=== PATIENT | male | born 1960 | race Caucasian/White ===

== ENCOUNTER 2016-12-23 18:34 | Inpatient (IN) | payer OTHER ==
--- NOTE | 2016-12-23 18:50 | ED GENERAL ADULT ---
History of Present Illness General Chief Complaint: Seizure Stated Complaint: PER , "I THINK HE HAD A SEIZURE" Source: patient, family, old records Exam Limitations: no limitations Vital Signs & Intake/Output Vital Signs & Intake/Output Vital Signs Date Time Temp Pulse Resp B/P Pulse O2 O2 Flow FiO2 Ox Delivery Rate 12/25 0830 98.5 117 18 110/70 93 Room Air 12/25 0045 99.1 100 18 110/78 94 Room Air 12/24 1608 98.6 106 20 120/60 98 ED Intake and Output 12/25 0000 12/24 1200 Intake Total 980 100 Output Total Balance 980 100 Intake, IV 20 Intake, Oral 960 100 Allergies Coded Allergies: NO KNOWN ALLERGIES (12/14/13) Reconcile Medications Aripiprazole (Abilify) 30 MG TABLET 1 TAB PO DAILY MENTAL HEALTH (Reported) Benztropine Mesylate 1 MG TABLET 1 TAB PO DAILY MENTAL HEALTH (Reported) [place] Carbonate 600 MG CAPSULE 1 CAP PO DAILY MENTAL HEALTH (Reported) Trazodone HCl 100 MG TABLET 1 TAB PO QPM SLEEP (Reported) Venlafaxine HCl (Venlafaxine HCl ER) 150 MG CAP.ER.24H 1 CAP PO DAILY MENTAL HEALTH (Reported) Triage Note: PT TO ED S/P SYNCOPAL EPISODE. PT STATES HE WENT TO USE THE BATHROOM, SHUT THE DOOR AND THEN PASSED OUT, HITTING THE FLOOR. SON STATES PT WAS OUT FOR A FEW SECONDS. PT HAS NO COMPLAINTS. DENIES BEING ON BLOOD THINNERS. PT DID NOT EAT TODAY. Triage Nurses Notes Reviewed? yes HPI: Patient is a 56 year old male brought in by his family for syncopal episode. Patient reports he was walking into the bathroom when he had a brief syncopal episode. Pain is 0/10. Patient was released from intermediate(1 year incarceration), was with family entire time. Son witnessed episode, reports patient was standing, passed out and hit his head then had less than 5 seconds of shaking. Denies headache, chest pain, palpitations, seizure activity, alcohol use, illicit substance ingestion. (COLBY GROVE,BRITTANI) Past History Travel History Traveled to [place] past 21 day No Medical History Any Pertinent Medical History? see below for history Psychiatric: bipolar disease, depression Surgical History Surgical History: non-contributory Psychosocial History What is your primary language Ivorian Tobacco Use: Current Daily Use Daily Tobacco Use Amount/Type: => 5 Cigarettes daily ETOH Use: denies use Illicit Drug Use: denies illicit drug use Family History Hx Contributory? No (BRITTANI COBOS) Review of Systems Review of Systems Constitutional: Denies: chills, diaphoresis, fever. EENTM: Reports: no symptoms. Respiratory: Denies: cough, short of breath. Cardiovascular: Reports: syncope. Denies: chest pain, palpitations, peripheral edema. GI: Denies: abdominal pain, nausea, vomiting. Genitourinary: Reports: no symptoms. Musculoskeletal: Denies: back pain, neck pain. Skin: Reports: no symptoms. Neurological/Psychological: Denies: headache, numbness, unable to move lower ext, unable to move upper ext. Hematologic/Endocrine: Denies: bruising, bleeding. Immunologic/Allergic: Denies: splenectomy. (BRITTANI COBOS) Physical Exam Physical Exam General Appearance: alert, awake Head: atraumatic, normal appearance Eyes: Bilateral: normal appearance, PERRL, EOMI. Ears, Nose, Throat: normal pharynx, normal ENT inspection, hearing grossly normal Neck: normal inspection, supple, full range of motion, no midline tenderness Respiratory: normal breath sounds, chest non-tender, no respiratory distress, lungs clear Cardiovascular: tachycardia, regular rhythm, no appreciable murmur Peripheral Pulses: 2+ radial (R), 2+ radial (L), 2+ dorsalis pedis (R), 2+ dorsalis pedis (L) Gastrointestinal: soft, non-tender, no palpable masses Back: normal inspection, normal range of motion, no vertebral tenderness Extremities: normal inspection, normal capillary refill, normal range of motion, no edema Neurologic/Psych: no motor/sensory deficits, awake, alert, oriented x 3, e commerce web developer II- XII nml as tested Skin: intact, normal color, warm/dry Lymphatic: no anterior cervical riky Core Measures ACS in differential dx? Yes CVA/TIA Diagnosis: No Severe Sepsis Present: No Septic Shock Present: No (BRITTANI COBOS) Progress Differential Diagnoses I considered the following diagnoses in my evaluation of the patient: Seizure, syncopal episode, vasovagal episode, orthostatic syncope, CVA, arrhythmia, substance abuse, electrolyte abnormality, intracranial bleed, pulmonary embolism Plan of Care: Orders Procedure Date/time Status House Staff 12/25 UNK Active Discharge Patient 12/25 UNK Active Episode witnessed by patient's son. Based on sons explanation suspect syncope rather than seizure. During my initial exam patient placed on panel monitor and had 2 episodes of nonsustained ventricular tachycardia. rhythm strip printed and placed in the chart. Discussed with and seen by Dr. Brennan. Results of labs and CT scan discussed with patient. Dr. Brennan discussed patient with Dr. Vergara for admission. (COLBY GROVE,BRITTANI) Diagnostic Imaging: Viewed by Me: Radiology Read. Discussed w/RAD: Radiology Read. Radiology Impression: PATIENT: KARIE SALGADO PRESENT AGE: 56 PATIENT ACCOUNT NO: [id number] : 61 LOCATION: [facility] ORDERING PHYSICIAN: BRITTANI GROVE SERVICE DATE: 12/23/16 EXAM TYPE: RAD - XRY-PORTABLE CHEST XRAY EXAMINATION: XR PORTABLE CHEST CLINICAL INFORMATION: Syncope. Nonsustained V. tach COMPARISON: None TECHNIQUE: Portable AP view of the chest was obtained. 7:03 PM FINDINGS: No significant abnormality is noted involving the heart, lungs, mediastinum, bony thorax or soft tissues. IMPRESSION: No acute abnormality of the chest. DICTATED BY: TOY AG MD DATE /TIME DICTATED:12/23/161955 FIBERGLASS MODEL MAKER:VON DATE/TIME TRANSCRIBED: 12/23/161955 CONFIDENTIAL, DO NOT COPY WITHOUT APPROPRIATE AUTHORIZATION. < Electronically signed in Other Vendor System> SIGNED BY: TOY AG MD 1999 Initial ED EKG: normal sinus rhythm 120 bpm, borderline right axis deviation, no acute st elevation or depression Rhythm Strip: NSR with episodes of nonsustained ventricular tachycardia (BRITTANI COBOS) Differential Diagnoses I considered the following diagnoses in my evaluation of the patient: Diagnostic Imaging: Viewed by Me: CT Scan. Discussed w/RAD: CT Scan. Radiology Impression: PATIENT: KARIE SALGADO PRESENT AGE: 56 PATIENT ACCOUNT NO: [id number] : 61 LOCATION: [facility] ORDERING PHYSICIAN: BRITTANI GROVE SERVICE DATE: 12/23/16 EXAM TYPE: CAT - CTA CHEST-PULMONARY EMBOLISM EXAMINATION: CT ANGIOGRAM OF THE CHEST WITH AND WITHOUT CONTRAST (CT PULMONARY ANGIOGRAM FOR PE) CLINICAL INFORMATION: Syncope. Tachycardia. COMPARISON: None TECHNIQUE: Prior to contrast administration, noncontrast localization images were obtained. Subsequently, multidetector volumetric imaging was performed from the thoracic inlet to below the diaphragms following the administration of 79 mL Optiray 300 intravenous contrast. No contrast reaction reported Sagittal, coronal, and MIP oblique sagittal reformatted images were obtained on the CT workstation, uploaded to PACS, and reviewed. Total exam dose-length product 369.62 mGy-cm FINDINGS: QUALITY OF STUDY/CONTRAST BOLUS: Satisfactory. PULMONARY ARTERIES: No central or segmental pulmonary emboli. THORACIC AORTA: No aneurysm or dissection. LUNG: Emphysematous lucencies of lung. No acute infiltrate. No interstitial or reticular opacity. Central bronchial airways are open. No bronchiectasis. PLEURA : No pleural effusion or pneumothorax. MEDIASTINUM: Normal heart size. No pericardial effusion. No hilar or mediastinal lymphadenopathy. No evidence of septal bowing or right heart strain. CHEST WALL/AXILLA: No axillary or internal mammary lymphadenopathy. OSSEOUS STRUCTURES: No acute or suspicious osseous abnormality. UPPER ABDOMEN: Unremarkable. No reflux of contrast into the hepatic veins to suggest elevated right heart pressures. IMPRESSION: 1. Emphysematous changes of lung. 2. No acute abnormality. No evidence of pulmonary embolism. VTE: negative DICTATED BY: TOY AG MD DATE/TIME DICTATED:12/23/162058 FIBERGLASS MODEL MAKER:VON DATE/TIME TRANSCRIBED:12/23/162058 CONFIDENTIAL, DO NOT COPY WITHOUT APPROPRIATE AUTHORIZATION. <Electronically signed in Other Vendor System> SIGNED BY: TOY AG MD 12/23/162111 (SANDIE BRENNAN MD) Departure Departure Disposition: STILL A PATIENT Condition: Stable Clinical Impression Primary Impression: Nonsustained ventricular tachycardia Secondary Impressions: Syncope Qualifiers: Syncope type: unspecified Qualified Code: R55 - Syncope and collapse Referrals: JOHANNA SHEPARD,CHRISTI Frost JR Departure Forms: Customer Survey General Discharge Information (BRITTANI COBOS) Departure Time of Disposition: 2120 Admission Note Spoke With: ZENA VERGARA MD Documentation of Exam: Documentation of any treatments & extenuating circumstances including Concerns Regarding Discharge (functional status, medication knowledge or non-compliance, living conditions, etc.) that warrant an admission rather than observation: [ TELE MONITOR, SERIAL EKG/TROPONIN, ECHOCARDIOGRAM, CARDIOLOGY CONSULTATION, CONSIDER NEURO EVALUATION] PA/TRAINING AND DEVELOPMENT HEAD Co-Sign Statement Statement: ED Attending supervision documentation- [X] I saw and evaluated the patient. I have also reviewed all the pertinent lab results and diagnostic results. I agree with the findings and the plan of care as documented in the PA's/TRAINING AND DEVELOPMENT HEAD's documentation. [X] I have reviewed the ED Record and agree with the PA's/TRAINING AND DEVELOPMENT HEAD's documentation. [] Additions or exceptions (if any) to the PAs/TRAINING AND DEVELOPMENT HEAD's note and plan are summarized below: [] (TIGRE SHEPARD,SANDIE) Critical Care Note Critical Care Note Critical Care Time: 30-74 min (COLBY GROVE,BRITTANI) Sig/Spike Start time Last Medication Dose Stop Time Status Admin Trazodone HCl 100 MG QPM 12/24 2200 AC (Olivia) Laboratory Tests 12/24/16 0707: Anion Gap 8, Estimated GFR > 60, BUN/Creatinine Ratio 13.3, Troponin I < 0.01, CBC w Diff NO MAN DIFF REQ, RBC 4.09 L, MCV 98.3 H, MCH 32.6 H, RDW 12.2, MPV 8.0, Gran % 63.6, Lymphocytes % 23.6, Monocytes % 9.1, Eosinophils % 3.4, Basophils % 0.3, Absolute Granulocytes 5.6, Absolute Lymphocytes 2.1, Absolute Monocytes 0.8 H, Absolute Eosinophils 0.3, Absolute Basophils 0, PUBS MCHC 33.2 12/24/16 0215: Lactic Acid 1.6, Troponin I < 0.01 12/23/161950: [place] 0.4 L, Serum Alcohol < 10.0 12/23/161950: Anion Gap 9, Estimated GFR > 60, BUN/Creatinine Ratio 12.2, Glucose 101 H, Calcium 9.5, Magnesium 1.9, Total Bilirubin 0.6, AST 17, ALT 34, Alkaline Phosphatase 78, Creatine Kinase 118, Troponin I < 0.01, Total Protein 7.5, Albumin 4.2, Globulin 3.3, Albumin/Globulin Ratio 1.3, Vitamin B12 534, Folate 14.5, TSH &T3 &Free T4 Intrp 3.590, Prolactin 7.5, Urine Opiates Screen < 100.00 , Methadone Screen < 40, Barbiturate Screen < 60, Ur Phencyclidine Scrn < 6.00, Amphetamines Screen < 100, U Benzodiazepines Scrn < 85, Urine Cocaine Screen < 50, Urine Cannabis Screen < 5.00 12/23/16 1910: CBC w Diff NO MAN DIFF REQ, RBC 4.53 L, MCV 96.8 H, MCH 32.6 H, RDW 12.0, MPV 7.9, Gran % 76.0 H, Lymphocytes % 15.6 L, Monocytes % 6.8, Eosinophils % 1.3, Basophils % 0.3, Absolute Granulocytes 10.3 H, Absolute Lymphocytes 2.1, Absolute Monocytes 0.9 H, Absolute Eosinophils 0.2, Absolute Basophils 0, PUBS MCHC 33.7 Episode witnessed by patient's son. Based on sons explanation suspect syncope rather than seizure. During my initial exam patient placed on panel monitor and had 2 episodes of nonsustained ventricular tachycardia. rhythm strip printed and placed in the chart. Discussed with and seen by Dr. Brennan. Results of labs and CT scan discussed with patient. Dr. Brennan discussed patient with Dr. Vergara for admission. (COLBY GROVE,BRITTANI) Diagnostic Imaging: Viewed by Me: CT Scan. Discussed w/RAD: CT Scan. Radiology Impression: PATIENT: KARIE SALGADO PRESENT AGE: 56 PATIENT ACCOUNT NO: [id number] : 61 LOCATION: [facility] ORDERING PHYSICIAN: BRITTANI GROVE SERVICE DATE: 12/23/16 EXAM TYPE: CAT - CTA CHEST-PULMONARY EMBOLISM EXAMINATION: CT ANGIOGRAM OF THE CHEST WITH AND WITHOUT CONTRAST (CT PULMONARY ANGIOGRAM FOR PE) CLINICAL INFORMATION: Syncope. Tachycardia. COMPARISON: None TECHNIQUE: Prior to contrast administration, noncontrast localization images were obtained. Subsequently, multidetector volumetric imaging was performed from the thoracic inlet to below the diaphragms following the administration of 79 mL Optiray 300 intravenous contrast. No contrast reaction reported Sagittal, coronal, and MIP oblique sagittal reformatted images were obtained on the CT workstation, uploaded to PACS, and reviewed. Total exam dose-length product 369.62 mGy-cm FINDINGS: QUALITY OF STUDY/CONTRAST BOLUS: Satisfactory. PULMONARY ARTERIES: No central or segmental pulmonary emboli. THORACIC AORTA: No aneurysm or dissection. LUNG: Emphysematous lucencies of lung. No acute infiltrate. No interstitial or reticular opacity. Central bronchial airways are open. No bronchiectasis. PLEURA : No pleural effusion or pneumothorax. MEDIASTINUM: Normal heart size. No pericardial effusion. No hilar or mediastinal lymphadenopathy. No evidence of septal bowing or right heart strain. CHEST WALL/AXILLA: No axillary or internal mammary lymphadenopathy. OSSEOUS STRUCTURES: No acute or suspicious osseous abnormality. UPPER ABDOMEN: Unremarkable. No reflux of contrast into the hepatic veins to suggest elevated right heart pressures. IMPRESSION: 1. Emphysematous changes of lung. 2. No acute abnormality. No evidence of pulmonary embolism. VTE: negative DICTATED BY: TOY AG MD DATE/TIME DICTATED:12/23/162058 FIBERGLASS MODEL MAKER:VON DATE/TIME TRANSCRIBED:12/23/162058 CONFIDENTIAL, DO NOT COPY WITHOUT APPROPRIATE AUTHORIZATION. <Electronically signed in Other Vendor System> SIGNED BY: TOY AG MD 12/23/162111 (SANDIE BRENNAN MD) Departure Departure Disposition: STILL A PATIENT Condition: Stable Clinical Impression Primary Impression: Nonsustained ventricular tachycardia Secondary Impressions: Syncope Qualifiers: Syncope type: unspecified Qualified Code: R55 - Syncope and collapse Referrals: JOHANNA SHEPARD,CHRISTI Frost JR Departure Forms: Customer Survey General Discharge Information (BRITTANI COBOS) Departure Time of Disposition: 2120 Admission Note Spoke With: ZENA VERGARA MD Documentation of Exam: Documentation of any treatments & extenuating circumstances including Concerns Regarding Discharge (functional status, medication knowledge or non-compliance, living conditions, etc.) that warrant an admission rather than observation: [ TELE MONITOR, SERIAL EKG/TROPONIN, ECHOCARDIOGRAM, CARDIOLOGY CONSULTATION, CONSIDER NEURO EVALUATION] PA/TRAINING AND DEVELOPMENT HEAD Co-Sign Statement Statement: ED Attending supervision documentation- [X] I saw and evaluated the patient. I have also reviewed all the pertinent lab results and diagnostic results. I agree with the findings and the plan of care as documented in the PA's/TRAINING AND DEVELOPMENT HEAD's documentation. [X] I have reviewed the ED Record and agree with the PA's/TRAINING AND DEVELOPMENT HEAD's documentation. [] Additions or exceptions (if any) to the PAs/TRAINING AND DEVELOPMENT HEAD's note and plan are summarized below: [] (SANDIE BRENNAN MD) Critical Care Note Critical Care Note Critical Care Time: 30-74 min (BRITTANI COBOS)
[2016-12-23 19:22] LABS: ABSOLUTE BASOPHIL COUNT 0 /CUMM (0.0-0.2); ABSOLUTE EOSINOPHIL COUNT 0.2 /CUMM (0.0-0.7); ABSOLUTE GRANULOCYTE CT 10.3 /CUMM (1.4-6.5); ABSOLUTE LYMPH COUNT 2.1 /CUMM (1.2-3.4); ABSOLUTE MONOCYTE COUNT 0.9 /CUMM (0.10-0.60); BASOPHIL % 0.3 % (0.0-2.0); EOSINOPHIL % 1.3 % (0-5); HEMATOCRIT 43.8 % (42-52); MEAN CORPUSCULAR HGB 32.6 PG (27.0-31.0); MEAN CORPUSCULAR HGB CONC 33.7 G/DL (33.0-37.0); MEAN CORPUSCULAR VOLUME 96.8 FL (80.0-94.0); MEAN PLATELET VOLUME 7.9 FL (7.4-10.4); PLATELET COUNT 246 /CUMM (130-400); RED BLOOD CELL CT 4.53 /CUMM (4.70-6.10); WHITE BLOOD CELL COUNT 13.5 /CUMM (4.8-10.8)
--- NOTE | 2016-12-23 20:00 | RADIOLOGY REPORT ---
EXAMINATION: XR PORTABLE CHEST CLINICAL INFORMATION: Syncope. Nonsustained V. tach COMPARISON: None TECHNIQUE: Portable AP view of the chest was obtained. 7:03 PM FINDINGS: No significant abnormality is noted involving the heart, lungs, mediastinum, bony thorax or soft tissues. IMPRESSION: No acute abnormality of the chest.
[2016-12-23] MEDS ORDERED: LITHIUM CARBON600 M1 PO (20:15)
[2016-12-23] MEDS ORDERED: VENLAFAXINE HC150 MG PO (20:16)
[2016-12-23] MEDS ORDERED: BENZTROPINE MESY1 M1 PO (20:16)
[2016-12-23] MEDS ORDERED: ABILIFY30 M1 PO (20:16)
[2016-12-23] MEDS ORDERED: TRAZODONE HCL100 M1 PO (20:16)
--- NOTE | 2016-12-23 21:12 | CT SCAN REPORT ---
EXAMINATION: CT ANGIOGRAM OF THE CHEST WITH AND WITHOUT CONTRAST (CT PULMONARY ANGIOGRAM FOR PE) CLINICAL INFORMATION: Syncope. Tachycardia. COMPARISON: None TECHNIQUE: Prior to contrast administration, noncontrast localization images were obtained. Subsequently, multidetector volumetric imaging was performed from the thoracic inlet to below the diaphragms following the administration of 79 mL Optiray 300 intravenous contrast. No contrast reaction reported Sagittal, coronal, and MIP oblique sagittal reformatted images were obtained on the CT workstation, uploaded to PACS, and reviewed. Total exam dose-length product 369.62 mGy-cm FINDINGS: QUALITY OF STUDY/CONTRAST BOLUS: Satisfactory. PULMONARY ARTERIES: No central or segmental pulmonary emboli. THORACIC AORTA: No aneurysm or dissection. LUNG: Emphysematous lucencies of lung. No acute infiltrate. No interstitial or reticular opacity. Central bronchial airways are open. No bronchiectasis. PLEURA: No pleural effusion or pneumothorax. MEDIASTINUM: Normal heart size. No pericardial effusion. No hilar or mediastinal lymphadenopathy. No evidence of septal bowing or right heart strain. CHEST WALL/AXILLA: No axillary or internal mammary lymphadenopathy. OSSEOUS STRUCTURES: No acute or suspicious osseous abnormality. UPPER ABDOMEN: Unremarkable. No reflux of contrast into the hepatic veins to suggest elevated right heart pressures. IMPRESSION: 1. Emphysematous changes of lung. 2. No acute abnormality. No evidence of pulmonary embolism. VTE: negative
[2016-12-23 21:26] LABS: LITHIUM 0.4 mmol/L (0.6-1.2)
--- NOTE | 2016-12-23 23:31 | History & Physical ---
FAUSTINO VANN MD 12/23/16 9940: General Information and HPI History of Present Illness: 56-year-old man with significant past medical history of "hearing voices" seen for evaluation of an episode of syncope. Patient was at home in his normal state of health this afternoon when he stood up from the table and ambulated to the bathroom. He turned around to shut the door when he suddenly lost consciousness. He denies any preceding aura, lightheadedness, chest pain, palpitations or shortness of breath and states that it felt like the "lights went out". He recalls waking up a short time later on the ground to his son who was at his side and reports that his father was seen to be "shaking" for about 5 seconds. Patient denies any bowel/bladder incontinence during this episode. The episode was witnessed by his son reports a positive head strike. Patient denies having ever had an episode like this before in the past. He denies any confusion after the episode. Patient does note a recent hospitalization at [facility] for "hearing voices" for which she was discharged to home on multiple psychiatric medications with instruction to follow-up with care. Patient reports medication compliance and regular follow-ups with his psychiatrist. Otherwise he denies any blurred/double vision, lightheadedness/dizziness, headache, fever, chills, nausea, vomiting, diarrhea, numbness/tingling, decreased oral intake, constipation, urinary frequency/urgency/burning/pain, slurred speech, altered sensation. Past medical history-"hearing voices" does not recall specific diagnosis Social history-denies recreational drug use reports medication compliance, does not currently have a PCP, followed by a psychiatrist at [facility] (see provider unknown) Allergies/Medications Allergies: Coded Allergies: NO KNOWN ALLERGIES (12/14/13) Home Med list Aripiprazole (Abilify) 30 MG TABLET 1 TAB PO DAILY MENTAL HEALTH (Reported) Benztropine Mesylate 1 MG TABLET 1 TAB PO DAILY MENTAL HEALTH (Reported) [place] Carbonate 600 MG CAPSULE 1 CAP PO DAILY MENTAL HEALTH (Reported) Trazodone HCl 100 MG TABLET 1 TAB PO QPM SLEEP (Reported) Venlafaxine HCl (Venlafaxine HCl ER) 150 MG CAP.ER.24H 1 CAP PO DAILY MENTAL HEALTH (Reported) Past History Travel History Traveled to [place] past 21 day No Medical History Psychiatric: bipolar disease, depression Surgical History Surgical History: none Past Family/Social History Psychosocial History Where do you live? Home Who Do You Live With? spouse, child Services at Home: None Primary Language: Mosotho ETOH Use: denies use Illicit Drug Use: denies illicit drug use Review of Systems Review of Systems Constitutional: Reports: see HPI. Exam & Diagnostic Data Last 24 Hrs of Vital Signs/I&O Vital Signs Date Time Temp Pulse Resp B/P Pulse O2 O2 Flow FiO2 Ox Delivery Rate 12/23 2340 96.9 106 18 109/65 96 Room Air 12/23 2111 97.6 115 16 121/73 94 Room Air 12/23 1840 97.0 140 20 117/68 96 Room Air Physical Exam General Appearance Alert, Oriented X3, Cooperative, No Acute Distress Skin No Rashes, No Breakdown, No Significant Lesion HEENT Atraumatic, PERRLA, EOMI, Mucous Membr. moist/pink Neck Supple, No JVD, +2 Carotid Pulse wo Bruit Cardiovascular Regular Rate, Normal S1, Normal S2, No Murmurs Lungs Clear to Auscultation, Normal Air Movement Abdomen Normal Bowel Sounds, Soft, No Tenderness, No Hepatospenomegaly, No Masses Neurological Normal Speech, Strength at 5/5 X4 Ext, Normal Tone, Sensation Intact, Cranial Nerves 3-12 NL, sensation/coorindation intact, gait not assessed , CN II-XII intact Extremities No Clubbing, No Cyanosis, No Edema, Normal Pulses, No Tenderness/ Swelling Vascular Normal Pulses, Pulses Symmetrical Last 24 Hrs of Labs/Maury: Laboratory Tests 12/23/161950: [place] 0.4 L, Serum Alcohol < 10.0 12/23/161950: Anion Gap 9, Estimated GFR > 60, BUN/Creatinine Ratio 12.2, Glucose 101 H, Calcium 9.5, Magnesium 1.9, Total Bilirubin 0.6, AST 17, ALT 34, Alkaline Phosphatase 78, Creatine Kinase Pending, Troponin I < 0.01, Total Protein 7.5, Albumin 4.2, Globulin 3.3, Albumin/Globulin Ratio 1.3, Vitamin B12 Pending, Folate Pending, TSH &T3 &Free T4 Intrp 3.590, Prolactin 7.5, Urine Opiates Screen < 100.00, Methadone Screen < 40, Barbiturate Screen < 60, Ur Phencyclidine Scrn < 6.00, Amphetamines Screen < 100, U Benzodiazepines Scrn < 85, Urine Cocaine Screen < 50, Urine Cannabis Screen < 5.00 12/23/160: CBC w Diff NO MAN DIFF REQ, RBC 4.53 L, MCV 96.8 H, MCH 32.6 H, RDW 12.0, MPV 7.9, Gran % 76.0 H, Lymphocytes % 15.6 L, Monocytes % 6.8, Eosinophils % 1.3, Basophils % 0.3, Absolute Granulocytes 10.3 H, Absolute Lymphocytes 2.1, Absolute Monocytes 0.9 H, Absolute Eosinophils 0.2, Absolute Basophils 0, PUBS MCHC 33.7 Diagnostic Data EKG Results Sinus tachycardia HR 121 NV 152 QTC 454 Assessment/Plan Assessment: 56-year-old man with multiple psychiatric issues seen for evaluation of a witnessed episode of loss of consciousness with head strike and short shaking episode. ED course: -Vitals: Temp 96.9-97.6, HR 106-140, RR 18-20 BP 109-121/65-73, O2 94-96% on room air -Significant Labs: WBC 13.5, Hgb/HCT 14.8/43.8, PLT 246, normal serum chemistries, normal liver function tests, troponin <0.01 -Studies: EKG-sinus tachycardia without any ST segment changes, chest x-ray-no acute abnormality of the chest, CTA-evidence of changes of the lungs without any acute abnormality and no evidence of pulmonary embolism, telemetry-2 episodes of nonsustained V. tach -Interventions: Normal saline 2 L Syncopal episode with possible seizure like activity Patient with multiple psychiatric issues and no known cardiovascular/neurologic medical history seen for evaluation of sudden loss of consciousness without any preceding symptoms. Prolactin normal. Creatinine kinase pending. Troponin negative. Urinalysis negative for any illicit substance. -Telemetry -Trend troponin/EKG -Echocardiogram -Cardiology consult -Follow-up CPK, B12, folate, TSHR Psychiatric disorder-most likely schizophrenia/bipolar disorder Followed by psychiatrist at [facility]. Patient reports medication compliance. [place] level low on initial evaluation. -[place] carbonate 600 mg by mouth daily -Trazodone 100 mg by mouth daily -Cogentin 1 mg by mouth daily -Venlafaxine 150 mg by mouth daily -Aripiprazole 30 mg by mouth daily Pain plan-acetaminophen Diet-regular diet DVT prophylaxis-Lovenox CODE STATUS-full code As Ranked By This Provider Problem List: 1. Syncope Qualifiers Syncope type: unspecified Qualified Code: R55 - Syncope and collapse Core Measures/Miscellaneous Acute Coronary Syndrome ACS Diagnosis: No Cerebrovascular Accident CVA/TIA Diagnosis: No Congestive Heart Failure CHF Diagnosis: No Venous Thromboembolism VTE Risk Factors: Acute medical illness, Age > 40 No [facility] VTE prophylaxis d/t: No contraindications No VTE Pharm Prophylaxis d/t: No contraindications VTE Diagnosis: No VTE Type: NONE VTE Confirmed by (Test): NONE Severe Sepsis Severe Sepsis Present: No Septic Shock Septic Shock Present: No Miscellaneous Documentation Attending Case Discussed With: ZENA VERGARA MD Primary Care Physician: JAYME THOMASON MD Patient sees these Specialists Psychiatrist at [facility] Level of Patient Care: Telemetry Consults Needed: Consulting Specialty: Cardiology KALI HOUSTON 12/24/16 0213: Resident Review Statement Resident Statement: examined this patient, discussed with internal medicine doctor, agreed with internal medicine doctor, amended to note Other Findings: 56-year-old man with past medical history of skin so hernia came to the hospital with chief complaint of syncopal episode. Patient reported one who was walking at home he had one episode of passing out/ syncope without any chest pain, dizziness, palpitations, shortness of breath, nausea, vomiting, losing urinary or bowel control. Patient denies any fever, chills, using any illicit medications. Patient does report of mild head trauma. During the ED observation patient had 2 episodes of nonsustained V. tach 3 and 5 beats. Vital signs were stable except mild tachycardia, Physical exam was unremarkable and noted above. WBC 13.5, MCV 94.7 CTA ruled out PE or artery dissection and showed emphysematous lungs EKG shows sinus tachycardia, heart rate 121, QTC 454, no acute ST-T changes Assessment and plan #Syncopal episode with non-sustained and V. tach -Admit to telemetry for 24-hour monitoring -EKG and troponin 3 -Mag, folate, TSH, prolactin were unremarkable -Echocardiogram -Dr. Vergara's are the upper -We can start low-dose beta qi if patient has another episode of nonsustained V. tach -Get head CT in the morning to rule out any itracranial pathology -tachcardia can be due to medication side effects #History of schizophrenia -Continue lithium, trazodone, venlafaxine, Benzotropine Full code, regular diet, DVT prophylaxis enoxaparin and Alps, Tylenol for pain ZENA VERGARA MD 12/24/16 1101: Attending MD Review Statement Attending Statement Attending MD Statement: examined this patient, discuss w/resident/PA/COMPUTER BUILDER, agreed w/resident/PA/COMPUTER BUILDER, discussed with family, discussed with nursing, reviewed images , amended to note Attending Assessment/Plan: Agree with housestaff note. The patient is a 56-year-old male who presents with syncope. He was in his usual state of health until yesterday when he lost consciousness while using the bathroom. He states that he felt that the lights went out. He woke up short time later on the floor. He was reported by his father to be shaking for possibly 5 seconds. He reports feeling better at this time. Review of systems: No fever. No chills. No rash. No melena. All other systems were reviewed, and were noted to be negative. Vital Signs Date Time Temp Pulse Resp B/P Pulse O2 O2 Flow FiO2 Ox Delivery Rate 12/24 0840 98.3 113 20 108/66 93 Room Air 12/24 0039 97.0 107 20 116/82 96 Room Air 12/23 2340 96.9 106 18 109/65 96 Room Air 12/23 2111 97.6 115 16 121/73 94 Room Air 12/23 1840 97.0 140 20 117/68 96 Room Air Physical examination: Gen: The patient is in no acute distress HEENT: Normal nose, ears, and oropharynx. Pupils equal bilaterally. Conjunctiva normal. Neck: Supple with no JVD, no masses, and no thyromegaly Lungs: Clear to auscultation with normal respiratory effort Heart: RRR, S1, S2, no murmurs. No peripheral edema, 2+ pulses in the lower extremities bilaterally Abdomen: Soft, nontender, no masses. No hepatomegaly. No splenomegaly Extremities: No clubbing or cyanosis. Normal muscle strength in the upper and lower extremities Skin: Normal skin turgor with no skin ulcers or lesions noted. Neuro: Cranial nerves intact. Sensation intact Psych: Alert and oriented 3 with appropriate affect Laboratory Tests 12/24 12/24 12/23 0707 214 1950 Chemistry Sodium (137 - 145 mmol/L) 138 Potassium (3.5 - 5.1 mmol/L) 4.1 Chloride (98 - 107 mmol/L) 104 Carbon Dioxide (22 - 30 mmol/L) 27 Anion Gap (5 - 16) 8 BUN (9 - 20 mg/dL) 12 Creatinine (0.7 - 1.2 mg/dL) 0.9 Estimated GFR (>60 ml/min) > 60 BUN/Creatinine Ratio (7 - 25 %) 13.3 Lactic Acid (0.7 - 2.1 mmol/L) 1.6 Troponin I (<0.11 ng/ml) < 0.01 < 0.01 Hematology CBC w Diff NO MAN DIFF REQ WBC (4.8 - 10.8 /CUMM) 8.8 RBC (4.70 - 6.10 /CUMM) 4.09 L Hgb (14.0 - 18.0 G/DL) 13.3 L Hct (42 - 52 %) 40.2 L MCV (80.0 - 94.0 FL) 98.3 H MCH (27.0 - 31.0 PG) 32.6 H RDW (11.5 - 14.5 %) 12.2 Plt Count (130 - 400 /CUMM) 213 MPV (7.4 - 10.4 FL) 8.0 Gran % (42.2 - 75.2 %) 63.6 Lymphocytes % (20.5 - 51.1 %) 23.6 Monocytes % (1.7 - 9.3 %) 9.1 Eosinophils % (0 - 5 %) 3.4 Basophils % (0.0 - 2.0 %) 0.3 Absolute Granulocytes (1.4 - 6.5 /CUMM) 5.6 Absolute Lymphocytes (1.2 - 3.4 /CUMM) 2.1 Absolute Monocytes (0.10 - 0.60 /CUMM) 0.8 H Absolute Eosinophils (0.0 - 0.7 /CUMM) 0.3 Absolute Basophils (0.0 - 0.2 /CUMM) 0 PUBS MCHC (33.0 - 37.0 G/DL) 33.2 Toxicology [place] (0.6 - 1.2 mmol/L) 0.4 L Serum Alcohol (<10 MG/DL) < 10.0 12/23 Chemistry Sodium (137 - 145 mmol/L) 135 L Potassium (3.5 - 5.1 mmol/L) 4.2 Chloride (98 - 107 mmol/L) 100 Carbon Dioxide (22 - 30 mmol/L) 26 Anion Gap (5 - 16) 9 BUN (9 - 20 mg/dL) 11 Creatinine (0.7 - 1.2 mg/dL) 0.9 Estimated GFR (>60 ml/min) > 60 BUN/Creatinine Ratio (7 - 25 %) 12.2 Glucose (65 - 99 mg/dL) 101 H Calcium (8.4 - 10.2 mg/dL) 9.5 Magnesium (1.6 - 2.3 mg/dL) 1.9 Total Bilirubin (0.2 - 1.3 mg/dL) 0.6 AST (17 - 59 U/L) 17 ALT (21 - 72 U/L) 34 Alkaline Phosphatase (< 127 U/L) 78 Creatine Kinase (55 - 170 U/L) 118 Troponin I (<0.11 ng/ml) < 0.01 Total Protein (6.3 - 8.2 g/dL) 7.5 Albumin (3.5 - 5.0 g/dL) 4.2 Globulin (1.9 - 4.2 gm/dL) 3.3 Albumin/Globulin Ratio (1.1 - 2.2 %) 1.3 Vitamin B12 (239 - 931 pg/mL) 534 Folate (2.76 - 20.0 ng/mL) 14.5 TSH &T3 &Free T4 Intrp (0.27 - 4.20 uIU/mL) 3.590 Prolactin (3.7 - 17.9 ng/mL) 7.5 Hematology CBC w Diff NO MAN DIFF REQ WBC (4.8 - 10.8 /CUMM) 13.5 H RBC (4.70 - 6.10 /CUMM) 4.53 L Hgb (14.0 - 18.0 G/DL) 14.8 Hct (42 - 52 %) 43.8 MCV (80.0 - 94.0 FL) 96.8 H MCH (27.0 - 31.0 PG) 32.6 H RDW (11.5 - 14.5 %) 12.0 Plt Count (130 - 400 /CUMM) 246 MPV (7.4 - 10.4 FL) 7.9 Gran % (42.2 - 75.2 %) 76.0 H Lymphocytes % (20.5 - 51.1 %) 15.6 L Monocytes % (1.7 - 9.3 %) 6.8 Eosinophils % (0 - 5 %) 1.3 Basophils % (0.0 - 2.0 %) 0.3 Absolute Granulocytes (1.4 - 6.5 /CUMM) 10.3 H Absolute Lymphocytes (1.2 - 3.4 /CUMM) 2.1 Absolute Monocytes (0.10 - 0.60 /CUMM) 0.9 H Absolute Eosinophils (0.0 - 0.7 /CUMM) 0.2 Absolute Basophils (0.0 - 0.2 /CUMM) 0 PUBS MCHC (33.0 - 37.0 G/DL) 33.7 Toxicology Urine Opiates Screen (>2000 NG/ML) < 100.00 Methadone Screen (>300 NG/ML) < 40 Barbiturate Screen (>200 NG/ML) < 60 Ur Phencyclidine Scrn (>25 NG/ML) < 6.00 Amphetamines Screen (>1000 NG/ML) < 100 U Benzodiazepines Scrn (>200 NG/ML) < 85 Urine Cocaine Screen (>300 NG/ML) < 50 Urine Cannabis Screen (>50 NG/ML) < 5.00 EKG tracing is independently reviewed, and reveals sinus tachycardia at 102, premature ventricular complexes Chest x-ray: Negative CTA Chest: 1. Emphysematous changes of lung. 2. No acute abnormality. No evidence of pulmonary embolism. Head CT: 1. There is no evidence of a recent intracranial hemorrhage. 2. No acute infarct. 3. No fracture or fluid level demonstrated Assessment: 1. Seizure, likely vasovagal.. Rule out cardiogenic syncope. 2. History of bipolar disorder Plan: * Monitor on telemetry * Check orthostatic vital signs * Echocardiogram * Likely ready for discharge tomorrow if stable.
--- NOTE | 2016-12-24 07:22 | PN- Housestaff ---
Subjective Follow-up For: Episode of syncope , probably vasovagal Complaints: no complaints Tele-Events Since Last Visit: Normal sinus rhythm, heart rate between 97-106, no any overnight cardiac events Subjective: Patient seen, examined at the bedside. He was not having any active complaints. He was able to sleep in the night comfortably. Denies of any delusions, hallucinations, depression, suicidal ideation. Review of Systems Constitutional: Denies: no symptoms, see HPI, chills, diaphoresis, fever, malaise, weakness, unexplained weight loss. EENTM: Denies: no symptoms. Cardiovascular: Denies: no symptoms. Respiratory: Denies: no symptoms. Gastrointestinal: Denies: no symptoms. Genitourinary: Denies: no symptoms. Musculoskeletal: Denies: no symptoms. Skin: Denies: no symptoms. Neurological/Psychological: Denies: no symptoms. Objective Last 24 Hrs of Vital Signs/I&O Vital Signs Date Time Temp Pulse Resp B/P Pulse O2 O2 Flow FiO2 Ox Delivery Rate 12/24 0840 98.3 113 20 108/66 93 Room Air 12/24 0039 97.0 107 20 116/82 96 Room Air 12/23 2340 96.9 106 18 109/65 96 Room Air 12/23 2111 97.6 115 16 121/73 94 Room Air 12/23 1840 97.0 140 20 117/68 96 Room Air Intake & Output 12/24 1600 12/24 0800 12/24 0000 Intake Total 894 827 3114 Output Total Balance 458 364 7526 Intake, IV 1000 Intake, Oral 720 100 Physical Exam General Appearance: Alert, Oriented X3, Cooperative, No Acute Distress Skin: No Rashes, No Breakdown HEENT: Atraumatic, PERRLA, EOMI Neck: Supple, No JVD Cardiovascular: Normal S1, Normal S2 Lungs: Clear to Auscultation, Normal Air Movement Abdomen: Soft, No Tenderness Neurological: Normal Gait, Normal Speech, Strength at 5/5 X4 Ext, Normal Tone, Sensation Intact Extremities: No Clubbing, No Cyanosis, No Edema Vascular: Normal Pulses, Pulses Symmetrical Current Medications: Current Medications Sig/Spike Start time Last Medication Dose Route Stop Time Status Admin Acetaminophen 650 MG Q6P PRN 12/24 0030 AC 12/24 PO 0830 Aripiprazole 30 MG DAILY 12/24 1000 AC 12/24 PO 0829 Benztropine Mesylate 1 MG DAILY 12/24 1000 AC 12/24 PO 0829 Enoxaparin Sodium 40 MG DAILY 12/24 1000 AC 12/24 SC 0829 Influenza Virus 0.5 ML 1000 12/24 1000 DC 12/24 Vaccine IM 12/24 1001 0830 [place] Carbonate 600 MG DAILY 12/24 1000 AC 12/24 PO 0829 [place] Carbonate 300 MG ONCE ONE 12/23 2345 DC 12/24 PO 12/23 2346 0200 Sodium Chloride 1,000 ML BOLUS ONE 12/23 2130 DC 12/23 IV 12/23 2228 213 Sodium Chloride 1,000 ML BOLUS ONE 12/23 1900 DC IV 12/23 195 Trazodone HCl 100 MG QPM 12/24 2200 AC PO Venlafaxine HCl 150 MG 0800 12/24 0800 AC 12/24 PO 0829 Last 24 Hrs of Lab/Maury Results Last 24 Hrs of Labs/Mics: Laboratory Tests 12/24/16 0707: Anion Gap 8, Estimated GFR > 60, BUN/Creatinine Ratio 13.3, Troponin I < 0.01, CBC w Diff NO MAN DIFF REQ, RBC 4.09 L, MCV 98.3 H, MCH 32.6 H, RDW 12.2, MPV 8.0, Gran % 63.6, Lymphocytes % 23.6, Monocytes % 9.1, Eosinophils % 3.4, Basophils % 0.3, Absolute Granulocytes 5.6, Absolute Lymphocytes 2.1, Absolute Monocytes 0.8 H, Absolute Eosinophils 0.3, Absolute Basophils 0, PUBS MCHC 33.2 12/24/165: Lactic Acid 1.6, Troponin I < 0.01 12/23/161950: [place] 0.4 L, Serum Alcohol < 10.0 12/23/161950: Anion Gap 9, Estimated GFR > 60, BUN/Creatinine Ratio 12.2, Glucose 101 H, Calcium 9.5, Magnesium 1.9, Total Bilirubin 0.6, AST 17, ALT 34, Alkaline Phosphatase 78, Creatine Kinase 118, Troponin I < 0.01, Total Protein 7.5, Albumin 4.2, Globulin 3.3, Albumin/Globulin Ratio 1.3, Vitamin B12 534, Folate 14.5, TSH &T3 &Free T4 Intrp 3.590, Prolactin 7.5, Urine Opiates Screen < 100.00 , Methadone Screen < 40, Barbiturate Screen < 60, Ur Phencyclidine Scrn < 6.00, Amphetamines Screen < 100, U Benzodiazepines Scrn < 85, Urine Cocaine Screen < 50, Urine Cannabis Screen < 5.00 12/23/160: CBC w Diff NO MAN DIFF REQ, RBC 4.53 L, MCV 96.8 H, MCH 32.6 H, RDW 12.0, MPV 7.9, Gran % 76.0 H, Lymphocytes % 15.6 L, Monocytes % 6.8, Eosinophils % 1.3, Basophils % 0.3, Absolute Granulocytes 10.3 H, Absolute Lymphocytes 2.1, Absolute Monocytes 0.9 H, Absolute Eosinophils 0.2, Absolute Basophils 0, PUBS MCHC 33.7 Orders EKG Findings: Normal sinus rhythm with heart rate between 97-106 Radiology Findings: Head CT scan without contrast 1. There is no evidence of a recent intracranial hemorrhage. 2. No acute infarct. 3. No fracture or fluid level demonstrated Assessment/Plan Assessment: Patient is a 56-year-old male with significant past medical history of hallucination on multiple antipsychotic medication presented with acute episode of fall , probably vasovagal syncope. Vital signs-temperature 98.6, respiratory rate 20, blood pressure 120/60, SPO2 98% on room air Plan- Episode of fall, probably secondary to vasovagal syncope- Possible discharge tomorrow Serial troponins and EKG were negative. CT scan of head without contrast is within the normal limit We will follow EEG Advised for telemetry monitoring to rule out tachycardia. [facility] intake output charting Patient currently does not have any episodes of hallucination, SI/HI. Probably does not need any psych evaluation we will continue all home medication. Advise to see psychiatrist as an outpatient. Diet-regular diet DVT prophylaxis-heparin/ALP S CODE STATUS-full code Problem List: 1. Syncope 2. Hallucination Pain Ratin Pain Location: Not applicable Pain Goal: Remain pain free Pain Plan: Mild Tomorrow's Labs & Rationales: none DVT/Prophylaxis: mechanical, pharmacological Consulting Request: Consulting Specialty: Cardiology
[2016-12-24 08:40] VITALS: BP 108/66
[2016-12-24 08:58] LABS: ABSOLUTE BASOPHIL COUNT 0 /CUMM (0.0-0.2); ABSOLUTE EOSINOPHIL COUNT 0.3 /CUMM (0.0-0.7); ABSOLUTE GRANULOCYTE CT 5.6 /CUMM (1.4-6.5); ABSOLUTE LYMPH COUNT 2.1 /CUMM (1.2-3.4); ABSOLUTE MONOCYTE COUNT 0.8 /CUMM (0.10-0.60); BASOPHIL % 0.3 % (0.0-2.0); EOSINOPHIL % 3.4 % (0-5); GRANULOCYTE % 63.6 % (42.2-75.2); HEMATOCRIT 40.2 % (42-52); MEAN CORPUSCULAR HGB 32.6 PG (27.0-31.0); MEAN CORPUSCULAR HGB CONC 33.2 G/DL (33.0-37.0); MEAN CORPUSCULAR VOLUME 98.3 FL (80.0-94.0); PLATELET COUNT 213 /CUMM (130-400); RBC DISTRIBUTION WIDTH 12.2 % (11.5-14.5); RED BLOOD CELL CT 4.09 /CUMM (4.70-6.10); WHITE BLOOD CELL COUNT 8.8 /CUMM (4.8-10.8)
--- NOTE | 2016-12-24 09:13 | CT SCAN REPORT ---
EXAMINATION: CT HEAD WITHOUT CONTRAST CLINICAL INFORMATION: Syncope. Rule out intracranial pathology. Head trauma COMPARISON: None. TECHNIQUE: Multidetector CT examination of the head is performed without contrast. DLP: 601 mGy-cm FINDINGS: There is no evidence of a recent intracranial hemorrhage or extra-axial collection. The midline structures are nondisplaced. The ventricles, cisterns, and sulci are within normal limits. There is no evidence of an intra-axial mass. There are no suspicious focal areas of abnormal brain attenuation. The christine-white interface is within normal limits. There is no evidence of acute territorial infarct. The paranasal sinuses and mastoids are within normal limits. The very lowest images suggest a small retention cyst or polyp in the right maxillary sinus IMPRESSION: 1. There is no evidence of a recent intracranial hemorrhage. 2. No acute infarct. 3. No fracture or fluid level demonstrated
[2016-12-24 16:08] VITALS: BP 120/60
--- NOTE | 2016-12-24 17:06 | ECHOCARDIOGRAM REPORT ---
KARIE SALGADO Age: 56 : 1960 Gender: M Exam Date: 12/24/2016 09:43 Exam Location: 1 [address] Ht (in): 70 Wt (lb): 165 BSA: 1.93 BP: 108 / 66 Ordering Physician: KALI HOUSTON MD Referring Physician: KALI HOUSTON MD Technologist: Vikram Burnett [facility] Room Number: 182-1 Indications: Arrhythmia Rhythm: Sinus Technical Quality: Good FINDINGS Left Ventricle Normal size left ventricle. Normal left ventricular wall thickness. Normal left ventricular ejection fraction visually estimated at > 60%. Normal left ventricular wall motion. Right Ventricle Normal right ventricular size and function. Right Atrium Normal right atrial size. Left Atrium Normal left atrial size. Mitral Valve Mild mitral annular calcification. Trace mitral regurgitation. Aortic Valve Structurally normal trileaflet aortic valve. No aortic stenosis. Trace aortic regurgitation. Tricuspid Valve Tricuspid valve not well visualized, grossly normal. Trace tricuspid regurgitation. Pulmonic Valve Pulmonic valve not well visualized, grossly normal. Trace pulmonic regurgitation. Pericardium No pericardial effusion. Great Vessels Normal size aortic root. CONCLUSIONS Normal left ventricular ejection fraction visually estimated at > 60%. Trace mitral regurgitation. Trace aortic regurgitation. Trace tricuspid regurgitation. José Miguel Light M.D. (Electronically Signed) Final Date: 24 December 2016 17:05 MEASUREMENTS (Male / Female) Normal Values 2D ECHO LV Diastolic Diameter PLAX 4.4 cm 4.2 - 5.9 / 3.9 - 5.3 cm LV Systolic Diameter PLAX 2.8 cm 2.1 - 4.0 cm LV Fractional Shortening PLAX 36.4 % 25 - 46 % LV Ejection Fraction 2D Teich 66.3 % IVS Diastolic Thickness 1.0 cm LVPW Diastolic Thickness 1.0 cm LV Relative Wall Thickness 0.5 LVOT Diameter 1.8 cm Aortic Root Diameter 2.8 cm LA Systolic Diameter LX 2.9 cm 3.0 - 4.0 / 2.7 - 3.8 cm Ascending Aorta Diameter 2.7 cm DOPPLER AV Peak Velocity 132.0 cm/s AV Peak Gradient 7.0 mmHg AV Mean Velocity 87.2 cm/s AV Mean Gradient 4.0 mmHg AV Velocity Time Integral 22.1 cm LVOT Peak Velocity 79.0 cm/s LVOT Peak Gradient 2.5 mmHg LVOT Mean Velocity 47.8 cm/s LVOT Mean Gradient 1.0 mmHg LVOT Velocity Time Integral 14.2 cm LVOT Stroke Volume 36.1 cm AV Area Cont Eq vti 1.6 cm AV Area Cont Eq pk 1.5 cm MV Peak Velocity 74.4 cm/s MV Peak Gradient 2.2 mmHg MV Mean Velocity 52.0 cm/s MV Mean Gradient 1.0 mmHg Mitral E Point Velocity 49.9 cm/s Mitral A Point Velocity 49.9 cm/s Mitral E to A Ratio 1.0 MV PHT Velocity 77.4 cm/s MV Deceleration Converse 732.0 cm/s MV Pressure Half Time 31.7 ms MV Area PHT 6.9 cm MV Deceleration Time 151.0 ms PV Peak Velocity 112.0 cm/s PV Peak Gradient 5.0 mmHg PV Mean Velocity 73.3 cm/s PV Mean Gradient 3.0 mmHg PV Velocity Time Integral 19.6 cm LV E' Lateral Velocity 11.8 cm/s Mitral E to LV E' Lateral Ratio 4.2 LV E' Septal Velocity 9.6 cm/s Mitral E to LV E' Septal Ratio 5.2
[2016-12-25 00:45] VITALS: BP 110/78
[2016-12-25 08:30] VITALS: BP 110/70; BP 160/90
--- NOTE | 2016-12-25 08:30 | PN- Housestaff ---
Subjective Follow-up For: Episode of syncope Complaints: no complaints Tele-Events Since Last Visit: Normal sinus rhythm, sinus tachycardia with heart rate between 99-107, orthostatic tachycardia with heart rate more than 150 Subjective: Patient is seen and examined at the bedside. He was not having any active complaints. He denies of any fall, dizziness, blurry vision. Review of Systems Constitutional: Denies: no symptoms, see HPI, chills, diaphoresis, fever, malaise, weakness, unexplained weight loss. Comments: Patient is asymptomatic Objective Last 24 Hrs of Vital Signs/I&O Vital Signs Date Time Temp Pulse Resp B/P Pulse O2 O2 Flow FiO2 Ox Delivery Rate 12/25 0830 98.5 117 18 110/70 93 Room Air 12/25 0045 99.1 100 18 110/78 94 Room Air 12/24 1608 98.6 106 20 120/60 98 Intake & Output 12/25 1600 12/25 0800 12/25 0000 Intake Total 130 260 Output Total Balance 130 260 Intake, IV 10 20 Intake, Oral 120 240 Physical Exam General Appearance: Alert, Oriented X3, Cooperative, No Acute Distress Skin: No Rashes, No Breakdown Cardiovascular: Regular Rate, Normal S1, Normal S2 Lungs: Clear to Auscultation, Normal Air Movement Abdomen: Normal Bowel Sounds, Soft Neurological: Normal Gait, Normal Speech, Strength at 5/5 X4 Ext, Normal Tone Extremities: No Clubbing, No Cyanosis, No Edema Vascular: Normal Pulses, Pulses Symmetrical Current Medications: Current Medications Sig/Spike Start time Last Medication Dose Route Stop Time Status Admin Acetaminophen 650 MG Q6P PRN 12/24 0030 AC 12/24 PO 0830 Aripiprazole 30 MG DAILY 12/24 1000 AC 12/25 PO 0951 Benztropine Mesylate 1 MG DAILY 12/24 1000 AC 12/25 PO 0951 Enoxaparin Sodium 40 MG DAILY 12/24 1000 AC 12/25 SC 0950 [place] Carbonate 600 MG DAILY 12/24 1000 AC 12/25 PO 0951 Trazodone HCl 100 MG QPM 12/24 2200 AC 12/24 PO 2120 Venlafaxine HCl 150 MG 0800 12/24 0800 AC 12/25 PO 0951 Assessment/Plan Assessment: Patient is a 56-year-old male with significant past medical history of hallucination on multiple antipsychotic medication presented with acute episode of fall , probably vasovagal syncope. Vital signs-temperature 98.6, pulse 117, blood pressure 110/70, SPO2 93% on room air, respiratory rate 18. Plan- Episode of fall, probably secondary to vasovagal Discharge today Serial troponins and EKG were negative. CT scan of head without contrast is within the normal limit We will follow EEG Advised for telemetry monitoring doesn't show any episodes of arrhythmia Strick intake output charting Patient currently does not have any episodes of hallucination, SI/HI. Probably does not need any psych evaluation we will continue all home medication. Advise to see psychiatrist as an outpatient. Advised to follow up with your PCP for further management. Advised to follow up with your psychiatrist for further management. Advised to follow up with Dr Light for further management, with in a week of discharge Diet-regular diet DVT prophylaxis-heparin/ALP S CODE STATUS-full code Problem List: 1. Hallucination 2. Syncope Pain Ratin Pain Location: Not applicable Pain Goal: Remain pain free Pain Plan: Mild to moderate Tomorrow's Labs & Rationales: none DVT/Prophylaxis: mechanical, pharmacological Consulting Request: Consulting Specialty: Cardiology
--- NOTE | 2016-12-25 09:18 | Patient Discharge Instructions ---
Discharge Instructions General Discharge Information You were seen/treated for: episode of syncope probably vasovagal syncope Special Instructions: Please follow up with your PCP for further management. Please follow up with your psychiatrist for further management. Please follow up with Dr Light for further management, with in a week of discharge. Diet Continue normal diet: Yes Activity Full Activity/No Limits: No (as tolerated) Acute Coronary Syndrome Inclusion Criteria At DC or during hospital stay patient has or had the following: ACS DIAGNOSIS No Discharge Core Measures Meds if any: Prescribed or Continued at Discharge Meds if any: NOT Prescribed or Continued at Discharge Congestive Heart Failure Inclusion Criteria At DC or during hospital stay patient has or had the following: CHF DIAGNOSIS No Discharge Core Measures Meds if any: Prescribed or Continued at Discharge Meds if any: NOT Prescribed or Continued at Discharge Cerebrovascular accident Inclusion Criteria At DC or during hospital stay patient has or had the following: CVA/TIA Diagnosis No Discharge Core Measures Meds if any: Prescribed or Continued at Discharge Meds if any: NOT Prescribed or Continued at Discharge Venous thromboembolism Inclusion Criteria VTE Diagnosis No VTE Type NONE VTE Confirmed by (Test) NONE Discharge Core Measures - Per Current guidelines, there needs to be overlap - treatment for the first 5 days of Warfarin therapy. - If discharged on Warfarin prior to 5 days of - overlap therapy, the patient will need to be - assessed for post discharge needs including - *Post discharge parental anticoagulation - *Warfarin and/or parental anticoagulation education - *Follow up date to check INR post discharge At least 5 days overlap therapy as Inpatient No Meds if any: Prescribed or Continued at Discharge Warfarin No Note: Overlap Therapy is Warfarin and Anticoagulant Meds if any: NOT Prescribed or Continued at Discharge
--- NOTE | 2016-12-25 12:07 | Discharge Summary ---
Visit Information Visit Dates Admission Date: 12/23/16 Discharge Date: 12/25/2016 Hospital Course Course Attending Physician: ZENA VERGARA MD Primary Care Physician: JAYME THOMASON MD Consulting Request: Consulting Specialty: Cardiology Hospital Course: Patient is a 56-year-old male with significant past medical history of hallucination on multiple antipsychotic medication presented with acute episode of fall. Vital signs at the time of admission -Temp 96.9-97.6, HR 106-140, RR 18-20 BP 109-121/65-73, O2 94-96% on room air On evaluation EKG showed sinus tachycardia without any ST segment changes. Chest x-ray and CTA were normal without any acute cardiopulmonary abnormality. Patient was admitted in the telemetry floor for further cardiac evaluation and heart monitoring. Serial troponins and EKGs were normal. Blood count and electrolytes were within normal limits. Echocardiogram showed LVEF >60% with trace MR/AR/TR. CT scan of head was normal without any acute event. His stay in telemetry was uneventful.We advised the patient to follow-up with as an outpatient. We specifically advised to take all fall precautions. Allergies: Coded Allergies: NO KNOWN ALLERGIES (12/14/13) Disposition Summary Disposition Principal Diagnosis: Vasovagal syncope Orthostatic tachycardia Additional Diagnosis: Hallucinations Discharge Disposition: home or self care Discharge Instructions General Discharge Information Code Status: Full Code Patient's Diet: Regular diet Patient's Activity: As tolerated, take all fall precautions Follow-Up Instructions/Appts: Please follow-up with Dr. Vergara within a week of discharge Please follow-up with your PCP within a week of discharge Please follow-up with your psychiatrist for further management. Please maintain the hydration. Medications at Discharge Discharge Medications: Continue taking these medications: [place] Carbonate ([place] Carbonate) 600 MG CAPSULE 1 Capsule ORAL DAILY Qty = 30 Comments: PER PT Benztropine Mesylate (Benztropine Mesylate) 1 MG TABLET 1 Tablet ORAL DAILY Qty = 30 Comments: PER PT Trazodone HCl (Trazodone HCl) 100 MG TABLET 1 Tablet ORAL Every night Qty = 30 Comments: PER PT Venlafaxine HCl (Venlafaxine HCl ER) 150 MG CAP.ER.24H 1 Capsule ORAL DAILY Qty = 30 Comments: PER PT Aripiprazole (Abilify) 30 MG TABLET 1 Tablet ORAL DAILY Qty = 30 Comments: PER PT Copies To: PADDY SHEPARD,JAYME Attending MD Review Statement Documenting Attending: ZENA VERGARA MD
--- NOTE | 2016-12-25 14:39 | PN- Cardiology ---
Subjective Subjective: Overall, the patient seems to be doing fine today. He denies any further symptoms. He was noted to have sinus tachycardia this morning when going to the bathroom. 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 Objective Vital Signs and I&Os Vital Signs Date Time Temp Pulse Resp B/P Pulse O2 O2 Flow FiO2 Ox Delivery Rate 12/25 0830 98.5 117 18 110/70 93 Room Air 12/25 0045 99.1 100 18 110/78 94 Room Air 12/24 1608 98.6 106 20 120/60 98 Intake & Output 12/25 1600 12/25 0800 12/25 0000 12/24 1600 12/24 0800 12/24 0000 Intake Total 130 260 436 357 2276 Output Total Balance 130 260 243 073 5413 Intake, IV 10 20 1000 Intake, Oral 120 240 720 100 Current Medications: Current Medications Sig/Spike Start time Last Medication Dose Route Stop Time Status Admin Acetaminophen 650 MG Q6P PRN 12/24 0030 DCD 12/24 PO 0830 Aripiprazole 30 MG DAILY 12/24 1000 DCD 12/25 PO 0951 Benztropine Mesylate 1 MG DAILY 12/24 1000 DCD 12/25 PO 0951 Enoxaparin Sodium 40 MG DAILY 12/24 1000 DCD 12/25 SC 0950 [place] Carbonate 600 MG DAILY 12/24 1000 DCD 12/25 PO 0951 Trazodone HCl 100 MG QPM 12/24 2200 DCD 12/24 PO 2120 Venlafaxine HCl 150 MG 0800 12/24 0800 DCD 12/25 PO 0951 Results Last 48 Hrs of Labs/Mics: Laboratory Tests 12/24/16 0707: Anion Gap 8, Estimated GFR > 60, BUN/Creatinine Ratio 13.3, Troponin I < 0.01, CBC w Diff NO MAN DIFF REQ, RBC 4.09 L, MCV 98.3 H, MCH 32.6 H, RDW 12.2, MPV 8.0, Gran % 63.6, Lymphocytes % 23.6, Monocytes % 9.1, Eosinophils % 3.4, Basophils % 0.3, Absolute Granulocytes 5.6, Absolute Lymphocytes 2.1, Absolute Monocytes 0.8 H, Absolute Eosinophils 0.3, Absolute Basophils 0, PUBS MCHC 33.2 12/24/16 0215: Lactic Acid 1.6, Troponin I < 0.01 12/23/161950: [place] 0.4 L, Serum Alcohol < 10.0 12/23/161950: Anion Gap 9, Estimated GFR > 60, BUN/Creatinine Ratio 12.2, Glucose 101 H, Calcium 9.5, Magnesium 1.9, Total Bilirubin 0.6, AST 17, ALT 34, Alkaline Phosphatase 78, Creatine Kinase 118, Troponin I < 0.01, Total Protein 7.5, Albumin 4.2, Globulin 3.3, Albumin/Globulin Ratio 1.3, Vitamin B12 534, Folate 14.5, TSH &T3 &Free T4 Intrp 3.590, Prolactin 7.5, Urine Opiates Screen < 100.00 , Methadone Screen < 40, Barbiturate Screen < 60, Ur Phencyclidine Scrn < 6.00, Amphetamines Screen < 100, U Benzodiazepines Scrn < 85, Urine Cocaine Screen < 50, Urine Cannabis Screen < 5.00 12/23/161909: CBC w Diff NO MAN DIFF REQ, RBC 4.53 L, MCV 96.8 H, MCH 32.6 H, RDW 12.0, MPV 7.9, Gran % 76.0 H, Lymphocytes % 15.6 L, Monocytes % 6.8, Eosinophils % 1.3, Basophils % 0.3, Absolute Granulocytes 10.3 H, Absolute Lymphocytes 2.1, Absolute Monocytes 0.9 H, Absolute Eosinophils 0.2, Absolute Basophils 0, PUBS MCHC 33.7 Assessment/Plan Assessment/Plan Assessment: 1. Seizure, likely vasovagal.. Rule out cardiogenic syncope. 2. History of bipolar disorder Recommendations: -The patient appears to be stable for discharge today. -Likely vasovagal syncope; follow-up with Dr. Light as outpatient for further evaluation as needed. Continue telemetry? No
== END 2016-12-25 13:55 | DRG 204 ==
LOC: ENRESERVTM → ENRESERVDT → ERH 18:34 → ENPENDDIS 21:18 → 1NO 21:18 → ERHI 21:18 → 1NO 12-24 00:50
PROVIDERS: Internal Medicine; Physician Assistant; ADMIT Internal Medicine Cardiovascular Disease
DX: R55 Syncope and collapse (principal); I47.2 Ventricular tachycardia; F20.9 Schizophrenia, unspecified; F17.210 Nicotine dependence, cigarettes, uncomplicated
CPT/HCPCS: 1NP; ERO; 36415; 80307; 82436; 93005; 93010; 93306; G0480; J1650; Q2036

== ENCOUNTER 2016-12-31 11:41 | Emergency (ER) | payer OTHER ==
[~2016-12-31] VITALS: Ht 172.7 cm; Wt 63.5 kg
[~2016-12-31 11:41] MED LIST: ABILIFY30 M1 PO; BENZTROPINE MESY1 M1 PO; LITHIUM CARBON600 M1 PO; TRAZODONE HCL100 M1 PO; VENLAFAXINE HC150 MG PO
[2016-12-31 11:44] VITALS: BP 136/84
--- NOTE | 2016-12-31 11:56 | ED SKIN/ALLERGY COMPLAINT ---
History of Present Illness General Chief Complaint: Laceration Procedure Stated Complaint: CUT SELF WITH A SCICORRS Source: patient Exam Limitations: no limitations Vital Signs & Intake/Output Vital Signs & Intake/Output Vital Signs Date Time Temp Pulse Resp B/P Pulse O2 O2 Flow FiO2 Ox Delivery Rate 12/31 1144 96.7 106 18 136/84 100 Room Air ED Intake and Output 01/01 0000 12/31 1200 Intake Total Output Total Balance Patient 140 lb Weight Allergies Coded Allergies: NO KNOWN ALLERGIES (12/14/13) Reconcile Medications Aripiprazole (Abilify) 30 MG TABLET 1 TAB PO DAILY MENTAL HEALTH (Reported) Benztropine Mesylate 1 MG TABLET 1 TAB PO DAILY MENTAL HEALTH (Reported) [place] Carbonate 600 MG CAPSULE 1 CAP PO DAILY MENTAL HEALTH (Reported) Trazodone HCl 100 MG TABLET 1 TAB PO QPM SLEEP (Reported) Venlafaxine HCl (Venlafaxine HCl ER) 150 MG CAP.ER.24H 1 CAP PO DAILY MENTAL HEALTH (Reported) Triage Note: 56 Y/O MALE C/O PUNCTURE WOUND TO L WRIST; 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 HAS TAPE IN PLACE WITH NO ACTIVE BLEEDING. STATES LAST TETANUS WAS "RECENTLY". DENIES WORKMANS COMP. Triage Nurses Notes Reviewed? yes HPI: This patient is a 56-year-old male who presented to the emergency department today for evaluation of a laceration to his left wrist. The patient reported that he was using scissors this afternoon when they slipped and punctured his wrist. He denied any suicidal ideation or intentional attempt. The patient reported that approximately 4 months ago he received a tetanus shot for stitches in his forehead. He reported pain in the area of the wound that is a 5 out of 10, constant, worse with movement, and no radiation. No palliative factors. No numbness or tingling in his extremities. (MARJORIE MARCUM,TANYA) Past History Travel History Traveled to [place] past 21 day No Medical History Any Pertinent Medical History? 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 No (TANYA AMADOR PA-C) Review of Systems Review of Systems Constitutional: Reports: no symptoms. EENTM: Reports: no symptoms. Respiratory: Reports: no symptoms. Cardiovascular: Reports: no symptoms. GI: Reports: no symptoms. Musculoskeletal: Reports: no symptoms. Skin: Reports: see HPI. Neurological/Psychological: Reports: no symptoms. All Other Systems: Reviewed and Negative (TANYA AMADOR PA-C) Physical Exam Physical Exam General Appearance: well developed/nourished, no apparent distress, alert, awake Comments: Well-developed well-nourished person in no acute distress HEENT: Head normocephalic, moist mucous membranes Neck: Supple, no lymphadenopathy Back: Normal gait Respiratory: No respiratory distress. Full sentences Extremities: No edema, full range of motion Neuro: Alert and oriented x3 Psych: Mood affect normal, normal memory normal judgment. Skin: Warm and dry, no rash on exposed skin. Approximately 1 cm in length, superficial laceration to the lateral ventral aspect of the left wrist extends into the subcutaneous tissue with mild amount of active bleeding. No surrounding erythema or edema. No foreign body in the wound site. Mildly tender to palpation around the wound site. (TANYA AMADOR PA-C) Progress Differential Diagnosis: abscess/cellulitis, skin laceration, skin abrasion, skin tear, skin avulsion, tendon injury Plan of Care: Current Medications Sig/Spike Start time Last Medication Dose Stop Time Status Admin Lidocaine 20 ML ONCE ONE 12/31 1200 UNVr (Lidocaine 1%) 12/31 1201 Departure Departure Disposition: HOME OR SELF CARE Condition: Stable Clinical Impression Primary Impression: Laceration Referrals: JAYME THOMASON MD (PCP/Family) Additional Instructions: KEEP THE WOUND SITE CLEAN AND DRY. RETURN IN 7-10 DAYS FOR A WOUND CHECK AND SUTURE REMOVAL. RETURN SOONER FOR ANY WORSENING SYMPTOMS, PUS DRAINAGE, FEVERS, OR FOR ANY OTHER CONCERNS. Departure Forms: Customer Survey General Discharge Information (TANYA AMADOR PA-C) PA/SHANK SORTER Co-Sign Statement Statement: ED Attending supervision documentation- [] I saw and evaluated the patient. I have also reviewed all the pertinent lab results and diagnostic results. I agree with the findings and the plan of care as documented in the PA's/SHANK SORTER's documentation. [X] I have reviewed the ED Record and agree with the PA's/SHANK SORTER's documentation. [] Additions or exceptions (if any) to the PAs/SHANK SORTER's note and plan are summarized below: [] (TIGRE SHEPARD,SANDIE) Procedures Laceration/Wound Repair Laceration/Wound Repair: Wound Location: upper extremity (LEFT WRIST) Wound's Depth, Shape: linear, subcutaneous Wound Length (cm): 1.0 Wound Explored: irrigated extensively Irrigated w/ Saline (ccs): 500 Betadine Prep? Yes Anesthesia: 1% lidocaine Volume Anesthetic (ccs): 1 Wound Repaired With: sutures Suture Size/Type: 5:0 Number of Sutures: 1 Layer Closure? No Sterile Dressing Applied: Yes Splint Applied? No Sling Applied? No Tetanus Status: up to date Progress: PA STUDENT ASSISTED IN WOUND CLOSURE. PATIENT TOLERATED THE PROCEDURE WELL. (MARJORIE MARCUM,TANYA)
== END 2016-12-31 12:40 ==
LOC: ERH 11:41
DX: S61.512A Laceration without foreign body of left wrist, initial encounter (principal); W27.2XXA Contact with scissors, initial encounter; Y92.9 Unspecified place or not applicable; Y93.9 Activity, unspecified

== ENCOUNTER 2017-01-08 14:12 | Emergency (ER) | payer OTHER ==
[~2017-01-08] VITALS: Ht 172.7 cm; Wt 72.6 kg
--- NOTE | 2017-01-08 15:11 | ED SKIN/ALLERGY COMPLAINT ---
History of Present Illness General Chief Complaint: Suture Removal/Wound Recheck Stated Complaint: SUTURE REMOVAL Source: patient Exam Limitations: no limitations Vital Signs & Intake/Output Vital Signs & Intake/Output Vital Signs Date Time Temp Pulse Resp B/P Pulse O2 O2 Flow FiO2 Ox Delivery Rate 01/08 1521 98.0 89 14 124/74 99 Room Air 01/08 1424 97.5 100 18 131/87 100 Room Air Allergies Coded Allergies: NO KNOWN ALLERGIES (12/14/13) Reconcile Medications Aripiprazole (Abilify) 30 MG TABLET 1 TAB PO DAILY MENTAL HEALTH (Reported) Benztropine Mesylate 1 MG TABLET 1 TAB PO DAILY MENTAL HEALTH (Reported) [place] Carbonate 600 MG CAPSULE 1 CAP PO DAILY MENTAL HEALTH (Reported) Trazodone HCl 100 MG TABLET 1 TAB PO QPM SLEEP (Reported) Venlafaxine HCl (Venlafaxine HCl ER) 150 MG CAP.ER.24H 1 CAP PO DAILY MENTAL HEALTH (Reported) Triage Note: 56 Y/O MALE REQUESTING SUTURE REMOVAL (1) TO INNER LEFT WRIST; PLACED 1 WEEK AGO. SITE APPEARS WELL HEALED. Triage Nurses Notes Reviewed? yes HPI: THIS PATIENT is a 56-year-old male who presented to the emergency department today for evaluation of suture removal. The patient reported that he had a puncture wound at which time one suture was placed to the inside of his left wrist. He denied any pain. No fevers or chills. No pus drainage from the wound site. He offered no other complaints. (TANYA AMADOR PA-C) Past History Travel History Traveled to [place] past 21 day No Medical History Any Pertinent Medical History? 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 No (TANYA AMADOR PA-C) Review of Systems Review of Systems Constitutional: Reports: no symptoms. EENTM: Reports: no symptoms. Respiratory: Reports: no symptoms. Cardiovascular: Reports: no symptoms. GI: Reports: no symptoms. Musculoskeletal: Reports: no symptoms. Skin: Reports: see HPI. Neurological/Psychological: Reports: no symptoms. All Other Systems: Reviewed and Negative (TANYA AMADOR PA-C) Physical Exam Physical Exam General Appearance: well developed/nourished, no apparent distress, alert, awake Comments: Well-developed well-nourished person in no acute distress HEENT: Head normocephalic, moist mucous membranes Neck: Supple, no lymphadenopathy Back: Normal gait Respiratory: No respiratory distress. Speaking in full sentences Extremities: No edema, full range of motion Neuro: Alert and oriented x3 Psych: Mood affect normal, normal memory normal judgment. Skin: Warm and dry, no rash on exposed skin. And one suture placed in the lateral aspect of the ventral wrist on the left with no surrounding edema and no pus drainage from the wound site. (TANYA AMADOR PA-C) Progress Differential Diagnosis: abscess/cellulitis, SUTURE REMOVAL Plan of Care: This patient is a 56-year-old male who presented for suture removal from his left wrist. One suture was removed. Patient tolerated the procedure well. No evidence of infection. We will discharge home. (TANYA AMADOR PA-C) Departure Departure Disposition: HOME OR SELF CARE Condition: Stable Clinical Impression Primary Impression: Visit for suture removal Referrals: JAYME THOMASON MD (PCP/Family) Additional Instructions: Continue to keep the wound site clean and dry. Return for any worsening symptoms or concerns. Departure Forms: Customer Survey General Discharge Information (TANYA AMADOR PA-C) PA/POLICE MAGISTRATE Co-Sign Statement Statement: ED Attending supervision documentation- [] I saw and evaluated the patient. I have also reviewed all the pertinent lab results and diagnostic results. I agree with the findings and the plan of care as documented in the PA's/POLICE MAGISTRATE's documentation. x I have reviewed the ED Record and agree with the PA's/POLICE MAGISTRATE's documentation. [] Additions or exceptions (if any) to the PAs/POLICE MAGISTRATE's note and plan are summarized below: [] (CHANI SHEPARD,CHIOMA)
[2017-01-08 15:21] VITALS: BP 124/74
== END 2017-01-08 15:22 ==
LOC: ERH 14:12
DX: S61.532D Puncture wound without foreign body of left wrist, subsequent encounter (principal)
CPT/HCPCS: 99281